=== PATIENT | female | born 1980 | race Caucasian/White ===

== ENCOUNTER → 2017-03-17 | Outpatient (CLI) | payer SELFPAY ==
--- NOTE | 2017-03-17 16:34 | MR ---
MRI CERVICAL SPINE: CLINICAL HISTORY: Intractable migraine headaches with aura per order. Severe headaches with neck stif fness for 2 years per patient. TECHNIQUE: Multiplanar, multisequence imaging of the cervical spine is performed without IV contrast. COMPARISON: Cervical spine x-ray July 29, 2015. FINDINGS: Sagittal images of the cervical spine show the craniocervical junction to appear within nor mal limits. The cervical and upper thoracic spinal cord is normal in course, caliber, and signal. V ertebral alignment is anatomic. The vertebral body and intravertebral disk heights are normal. No l arge posterior disc herniations are seen on sagittal images. The bone marrow signal intensity is with in normal limits. No significant spurring is present. Axial images show the C2-C3 through C4-C5 level to appear within normal limits. Axial images at C5-C6 level show small central disc protrusion on axial image 21 confirmed on sagitta l image 7 minimally effacing anterior thecal sac, bilateral neural foramina are patent. Axial images at C6-C7 and C7-T1 levels are within normal limits. IMPRESSION: Small central disc herniation C5-C6 level otherwise unremarkable study.
== END | disposition home or self-care (01) ==
LOC: RADMRIMAIN 15:27
PROVIDERS: ATTEND Psychiatry & Neurology Neurology
DX: M50.222 Other cervical disc displacement at C5-C6 level (principal); G43.109 Migraine with aura, not intractable, without status migrainosus
CPT/HCPCS: 72141

== ENCOUNTER → 2017-09-12 | Outpatient (CLI) | payer BC, OTHER ==
--- NOTE | 2017-09-12 16:50 | US ---
EXAMINATION TYPE: US OB <= 14 wk fetus DATE OF EXAM: 09/12/2017 COMPARISON: NONE CLINICAL HISTORY: CONFIRM DATES Z36. Confirm dates due to enlarged UT on physical exam EXAM PERFORMED: TA EXAM MEASUREMENTS: GESTATIONAL AGE / DATING Physician Established: (14 weeks/5 days) EDC: 03/10/2018 Dates by LMP: (14 weeks/5 days) EDC: 03/10/2018 Dates by First Scan: LAB ANIMAL TECHNICIAN Dates by Current Scan for: (14 weeks/5 days) EDC: 03/08/2018 MATERNAL ANATOMY Uterus: 18.1 x 11.9 x 8.0cm, possible bicornuate uterus versus didelphys versus septate uterus seen, gestation within right horn Right Ovary: not seen due to enlarged UT and bowel gas Left Ovary: not seen due to enlarged UT and bowel gas Post CDS / Adnexa: wnl Presence of free fluid: no Presence of corpus luteal cyst: no Presence of subchorionic bleed: no GESTATION / SURVEY CRL: 8.7 (14 weeks/5 days) MSD: wnl Yolk Sac (normal less than 6mm): not seen Heart Rate: 148 bpm Rhythm: Normal IUP: Viable IUP Date of LMP: 06/03/2017 Beta HcG (if available): not available IMPRESSION: 1. 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 Differential diagnosis is for bicornuate uterus, uterine didelphys, or septate uterus. Correlation with any prior HSG or pelvi c ultrasound would be of benefit. If there is clinical need unenhanced MR could be performed. T here is a current sonographic gestational age of 14 weeks and 5 days concordant with menstrual age an d estimated date of delivery of 03/08/2018. 2. Nonvisualization of the ovaries.
[2017-09-12 16:56] LABS: CH 31.5; CHCM 33.7; HCT 34.6 % (34.0-46.0); HDW 2.35; HGB 11.5 gm/dL (11.4-16.0); MCH 31.4 pg (25.0-35.0); MCHC 33.3 g/dL (31.0-37.0); MCV 94.2 fL (80.0-100.0); Mean Platelet Volume 9.2; RBC 3.67 m/uL (3.80-5.40); RDW 14.9 % (11.5-15.5); WBC 13.6 k/uL (3.8-10.6)
[2017-09-12 17:09] LABS: Glucose 82 mg/dL (74-99); Non-African American GFR(MDRD) >60 (>60 ml/min/1.73 sqM)
[2017-09-13 02:00] LABS: Treponemal Ab Non-Reactive (Non-Reactive)
== END | disposition home or self-care (01) ==
LOC: RADUSWWP 16:01
PROVIDERS: ATTEND Obstetrics & Gynecology
DX: Z36.89 Encounter for other specified antenatal screening (principal); O26.812 Pregnancy related exhaustion and fatigue, second trimester; Z3A.14 14 weeks gestation of pregnancy
CPT/HCPCS: 76801; 82565; 82947; 85027; 86762; 86780; 86850; 86900; 86901; 87340; 87390

== ENCOUNTER 2018-01-27 22:35 | Outpatient (CLI) | payer BC, OTHER ==
[2018-01-27 23:35] VITALS: PULSE 98; RESP 17; TEMP 96.8
[2018-01-28 00:09] VITALS: BP 121/78
--- NOTE | 2018-01-29 11:23 | P.MSEPDOC ---
Presenting Problems - Arrival Data Date of Arrival on Unit: 01/27/18 Time of Arrival on Unit: 22:37 Mode of Transport: Wheelchair - Complaint OB-Reason for Admission/Chief Complaint: Rule Out PROM, Pain Comment: Patient presents to triage for evaluation of possible ROM after " losing mucus plug" about 1400 this afternoon. Patient also complains of mild back pain that started about two days ago. Medical History - Information : 2 Para: 1 Term: 1 : 0 Abortions: Spontaneous or Elective: 0 Number of Living Children: 1 - Gestational Age Gestational Age by FRANK (wks/days): 34 Weeks and 1 Days - History Complications: Smoker, Other Comment: Advanced maternal age. Bicornuate uterus. Review of Systems - Review of Systems Constitutional: No problems Breast: No problems ENT: No problems Cardiovascular: No problems Respiratory: No problems Gastrointestinal: No problems Genitourinary: No problems Musculoskeletal: No problems Neurological: No problems Skin: No problems Vital Signs - Temperature Temperature: 96.8 F Temperature Source: Temporal Artery Scan - Pulse Pulse Oximetery Pulse Rate: 98 Pulse Assessment Method: Pulse Oximetry - Respirations Respiratory Rate: 17 Oxygen Delivery Method: Room Air O2 Sat by Pulse Oximetry: 100 - Blood Pressure Right Arm Blood Pressure: 121/78 Blood Pressure Mean: 92 Blood Pressure Source: Automatic Cuff Medical Screen Scoring (Pre) - Cervical Exam Dilation: 0 cm = 0 Effacement: Exam Deferred Membranes: Intact - Uterine Contractions Frequency: N/A Duration: N/A Intensity: N/A - Maternal Vital Signs Maternal Temperature: N/A Maternal Blood Pressure: Systolic >139 = 2 Signs of Preeclampsia: N/A Maternal Respirations: N/A - Pain Assessment Pain Location and Character: Back Pain Scale Used: Numeric (1 - 10) Pain Intensity: 2 Pain Management Goal: 0 Pain Description: Sore Pain Radiation Location: n/a Pain Frequency: Intermittent Pain Duration: 48 Pain Duration Units: Hours Pain Behavior: Vocalization Effects of Pain: none Pain Aggravating Factors: None Pharmacological Interventions: PRN Medication Non-Pharmacological Interventions: Distraction - Maternal Trauma Maternal Trauma: N/A - Assessment Baseline FHR: 145 Heart Rate - NICHD Category: Category I (Normal) = 0 NST: Reactive Position: N/A Station: N/A - Total Score Total Score (Pre): 2 - Level of Risk Level of Risk: Low (0-5) Physician Notification (Pre) - Physician Notified Physician Notified Date: 01/27/18 Physician Notified Time: 23:15 Physician/Practitioner Notifed:: Christina Spoke With: Christina New Order Received: Yes (Discharge home) Medical Screen Scoring (Post) - Cervical Exam Dilation: Exam Deferred Effacement: Exam Deferred Membranes: Intact - Uterine Contractions Frequency: N/A Duration: N/A Intensity: N/A - Maternal Vital Signs Maternal Temperature: N/A Signs of Preeclampsia: N/A Maternal Respirations: N/A - Total Score Total Score (Post): 0 Disposition - Disposition OB Disposition: Discharge to home Discharge Date: 01/27/18 Discharge Time: 23:30 I agree with the RN Medical Screening Exam: Yes Risk & Benefit of care provided described in d/c instruction: Yes Diagnosis: FALSE LABOR BEFORE 37 COMPLETED WEEKS OF GEST, THIRD TRI
== END 2018-01-27 23:30 | disposition home or self-care (01) ==
LOC: FBPOP 22:35
PROVIDERS: ATTEND Obstetrics & Gynecology
DX: O47.03 False labor before 37 completed weeks of gestation, third trimester (principal); O99.333 Smoking (tobacco) complicating pregnancy, third trimester; Z3A.34 34 weeks gestation of pregnancy
CPT/HCPCS: 84112; 99213

== ENCOUNTER 2018-02-09 06:45 | Outpatient (CLI) | payer BC, OTHER ==
[2018-02-09 08:17] VITALS: BP 130/73; PULSE 85; RESP 18; TEMP 97.3
--- NOTE | 2018-02-14 12:31 | P.MSEPDOC ---
Presenting Problems - Arrival Data Date of Arrival on Unit: 02/09/18 Time of Arrival on Unit: 06:35 Mode of Transport: Ambulatory - Complaint OB-Reason for Admission/Chief Complaint: Possible Onset of Labor Comment: contractions 5 min apart for one hour Medical History - Information : 2 Para: 1 Term: 1 : 0 Abortions: Spontaneous or Elective: 0 Number of Living Children: 1 - Gestational Age Gestational Age by FRANK (wks/days): 35 Weeks and 6 Days Review of Systems - Review of Systems Constitutional: No problems Breast: No problems ENT: No problems Cardiovascular: No problems Respiratory: No problems Gastrointestinal: No problems Genitourinary: No problems Musculoskeletal: No problems Neurological: No problems Skin: No problems Vital Signs - Temperature Temperature: 97.3 F Temperature Source: Temporal Artery Scan - Pulse Right Sitting Brachial Pulse Rate: 85 Pulse Assessment Method: Automatic Cuff - Respirations Respiratory Rate: 18 Oxygen Delivery Method: Room Air O2 Sat by Pulse Oximetry: 100 - Blood Pressure Right Arm Sitting Blood Pressure: 130/73 Blood Pressure Mean: 92 Blood Pressure Source: Automatic Cuff Medical Screen Scoring (Pre) - Cervical Exam Dilation: 0 cm = 0 - Uterine Contractions Frequency: > 5 minutes apart = 1 Duration: > 40 seconds = 2 Intensity: N/A - Maternal Vital Signs Maternal Temperature: N/A Maternal Blood Pressure: N/A Signs of Preeclampsia: N/A Maternal Respirations: N/A - Pain Assessment Pain Intensity: 5 Pain Management Goal: 0 - Maternal Trauma Maternal Trauma: N/A - Assessment Baseline FHR: 125 Heart Rate - NICHD Category: Category I (Normal) = 0 NST: Reactive Position: N/A Station: N/A - Total Score Total Score (Pre): 3 - Level of Risk Level of Risk: Low (0-5) Physician Notification (Pre) - Physician Notified Physician Notified Date: 02/09/18 Physician Notified Time: 07:30 Physician/Practitioner Notifed:: Dr Nolen Spoke With: Dr Nolen New Order Received: Yes - Notification Comment Comment: dc home if reactive NST and no change in cervical exam Disposition - Disposition OB Disposition: Discharge to home Discharge Date: 02/09/18 Discharge Time: 08:17 I agree with the RN Medical Screening Exam: Yes Risk & Benefit of care provided described in d/c instruction: Yes Diagnosis: FALSE LABOR BEFORE 37 COMPLETED WEEKS OF GEST, THIRD TRI
== END 2018-02-09 08:19 | disposition home or self-care (01) ==
LOC: FBPOP 06:45
PROVIDERS: ATTEND Obstetrics & Gynecology
DX: O47.03 False labor before 37 completed weeks of gestation, third trimester (principal); Z3A.35 35 weeks gestation of pregnancy
CPT/HCPCS: 59025; 99213

== ENCOUNTER 2018-02-27 12:05 | Outpatient (CLI) | payer BC, OTHER ==
[2018-02-27 13:28] VITALS: BP 139/77; PULSE 89; RESP 18
--- NOTE | 2018-02-27 13:30 | US ---
EXAMINATION TYPE: US OB >= 14 wk fetus DATE OF EXAM: 02/27/2018 COMPARISON: None CLINICAL HISTORY: NON reactive NST TECHNIQUE: Transabdominal (TA) GESTATIONAL AGE / DATING Physician Established: (38 weeks/5 days) EDC: 03/08/2018 Dates by LMP: (38 weeks/5 days) EDC: 03/08/2018 Dates by First Scan: (38 weeks/5 days) EDC: 03/08/2018 Dates by Current Scan: (36 weeks/6 days) EDC: 03/21/2018 SURVEY IUP: Single PLACENTA: Fundal PREVIA: No Previa KATELIN: 8.4 cm Lower limits of normal CERVICAL LENGTH (transabdominal: norm > 3.0cm): 3.8 cm BIOMETRY PRESENTATION: Vertex LIE: Longitudinal BPD: 9.19 cm 37 weeks / 2 days HC: 33.6 cm 38 weeks / 3 days AC: 32.82 cm 36 weeks / 5 days FL: 7.12 cm 36 weeks / 3 days ESTIMATED WEIGHT IN GRAMS: 3070 grams ESTIMATED WEIGHT IN LBS/OZ: 6 lbs. 12 oz. WEIGHT PERCENTAGE BASED ON ESTABLISHED DATES: 23.6% HC/AC: 1.02 Normal FL/AC: 21.71 Normal HEART RATE: 126 bpm RHYTHM: Normal Live IUP with an FRANK of 03/21/2018 by this exam. KATELIN is lower limits of normal. IMPRESSION: Single live intrauterine with an estimated sonographic age of 36 weeks and 6 da ys and date of delivery of 03/21/2018. Amniotic fluid index is lower limits of normal measuring 8.4 cm . heart rate is also lower limits of normal at 126 bpm, however this does not meet criteria for bradycardia.
== END 2018-02-27 13:20 | disposition home or self-care (01) ==
LOC: FBPOP 12:05
PROVIDERS: ATTEND Obstetrics & Gynecology
DX: O76 Abnormality in fetal heart rate and rhythm complicating labor and delivery (principal); Z3A.36 36 weeks gestation of pregnancy
CPT/HCPCS: 59025; 76805

== ENCOUNTER 2018-03-06 10:23 | Inpatient (IN) | payer BC, OTHER ==
[2018-03-06] MEDS ORDERED: OXYTOCIN 10 UNIT/ML 1 ML VIAL IM PRN (11:25)
[2018-03-06] MEDS ORDERED: CARBOPROST TROMETHAMINE 250 MCG/ML 1 ML AMP IM PRN (11:25)
[2018-03-06] MEDS ORDERED: METHYLERGONOVINE 0.2 MG/ML 1 ML AMP IM PRN (11:25)
[2018-03-06] MEDS ORDERED: TERBUTALINE 1 MG/ML VIAL SQ PRN (11:25)
[2018-03-06] MEDS ORDERED: LIDOCAINE 1% (PF) 10 MG/ML (30 ML SDV) SQ PRN (11:25)
[2018-03-06] MEDS ORDERED: LACTATED RINGERS 1,000 ML IV SCH (11:30)
[2018-03-06 11:42] VITALS: BMI 75.2
[2018-03-06] MEDS ORDERED: OXYTOCIN 20 UNITS/1000 ML NS 1,000 ML IV SCH (12:00)
[2018-03-06] MEDS ORDERED: BENZOCAINE/MENTHOL SPRAY 1 GM/SPRAY AEROSOL TOPICAL PRN (12:35)
[2018-03-06] MEDS ORDERED: diphenhydrAMINE 50 MG/ML 1 ML VIAL IVP PRN ×2 (12:35)
[2018-03-06] MEDS ORDERED: ZOLPIDEM 5 MG TAB PO PRN (12:35)
[2018-03-06] MEDS ORDERED: WITCH HAZEL 1 EACH MED..PAD TOPICAL PRN (12:35)
[2018-03-06] MEDS ORDERED: diphenhydrAMINE 25 MG CAP PO PRN (12:35)
[2018-03-06] MEDS ORDERED: diphenhydrAMINE 50 MG CAP PO PRN (12:35)
[2018-03-06] MEDS ORDERED: ACETAMINOPHEN TAB 325 MG TAB PO PRN (12:35)
[2018-03-06] MEDS ORDERED: SIMETHICONE 80 MG CHEWABLE PO PRN (12:35)
[2018-03-06] MEDS ORDERED: HYDROCORTISONE 2.5% RECTAL CREAM 30 GM TUBE RECTAL PRN (12:35)
[2018-03-06] MEDS ORDERED: LANOLIN CREAM 5 GM TUBE TOPICAL PRN (12:35)
[2018-03-06] MEDS ORDERED: DIPH,PERTUS(ACELL)TETVAC-LF 0.5 ML VIAL IM ONE (12:36)
[2018-03-06 12:48] LABS: Basophils % (A) 0 %; Eosinophils # (A) 0.2 k/uL (0-0.7); Eosinophils % (A) 1 %; HCT 43.6 % (34.0-46.0); HGB 14.4 gm/dL (11.4-16.0); Lymphocytes # (A) 2.8 k/uL (1.0-4.8); Lymphocytes % (A) 17 %; MCH 30.1 pg (25.0-35.0); MCV 91.2 fL (80.0-100.0); Mean Platelet Volume 13.5; Monocytes # (A) 0.7 k/uL (0-1.0); Monocytes % (A) 4 %; Neutrophils # (A) 12.4 k/uL (1.3-7.7); Neutrophils % (A) 76 %; Platelet Count 205 k/uL (150-450); RBC 4.78 m/uL (3.80-5.40); RDW 14.6 % (11.5-15.5); WBC 16.4 k/uL (3.8-10.6)
--- NOTE | 2018-03-06 12:54 | P.HPOB ---
History of Present Illness H&P Date: 03/06/18 Chief Complaint: Contractions. This patient is a pleasant 37-year-old 2 para 1 female estimated date of confinement 03/10/2018 estimated gestational age 39-3/7 weeks who presents by EMS this morning with complaints of active labor. Patient's care has been complicated by advanced for maternal age. 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 Patient also reported a prolonged second stage with her first delivery requiring vacuum delivery. That baby was 5 lbs. 7 oz. She and I did have a long discussion about this and we discussed options for delivery including elective section and she has requested trial of labor. Patient is now 9 cm dilated in active labor. Review of Systems Gastrointestinal: Reports heartburn Genitourinary: Reports Menstruation: Reports amenorrhea Past Medical History Additional Past Medical History / Comment(s): Asthma, migranes History of Any Multi-Drug Resistant Organisms: None Reported Additional Past Surgical History / Comment(s): Patient had wisdom tooth extraction. Past Anesthesia/Blood Transfusion Reactions: No Reported Reaction Past Psychological History: No Psychological Hx Reported Smoking Status: Current every day smoker Past Alcohol Use History: None Reported Past Drug Use History: None Reported - Past Family History Father Family Medical History: No Reported History Medications and Allergies Home Medications Medication Instructions Recorded Confirmed Type Pnv,Calcium 72/Iron/Folic Acid 1 tab PO DAILY 01/27/18 03/06/18 History [ Plus Tablet] Allergies Allergy/AdvReac Type Severity Reaction Status Date / Time iodine Allergy Anaphylaxis Verified 03/06/18 10:51 Penicillins Allergy Anaphylaxis Verified 03/06/18 10:51 shellfish derived [Shellfish] Allergy Anaphylaxis Verified 03/06/18 10:51 latex AdvReac Rash/Hives Verified 03/06/18 10:51 Exam - Vital Signs Vital signs: Vital Signs Temp Pulse Resp BP Pulse Ox 03/06/18 11:42 82 18 144/70 100 03/06/18 11:27 104 H 18 134/72 03/06/18 11:12 83 18 129/66 03/06/18 10:30 95.8 F L 82 18 132/87 98 Intake and Output 03/05/18 03/06/18 03/06/18 22:59 06:59 14:59 Other: Weight 205 kg - OBG Physical Exam Abdomen: bowel sounds normal, no diffuse tenderness, no bruit present, no guarding noted, no hepatomegaly, no splenomegaly, no mass Vulva: both: normal Vagina: normal moisture, no discharge Cervix: no lesion (Cervix is anterior lip on my presentation.), no discharge Uterus: enlarged (Fundal height in the office was 38 cm.) Results blood work shows she is AB+, rubella immune, RPR nonreactive, hepatitis B negative, HIV is nonreactive, Glucola was normal, group B strep was negative, level III ultrasound was normal other than a bicornuate uterus. Assessment and Plan Assessment: This is a pleasant 37-year-old 2 para 1 female 39-3/7 weeks gestation and in active labor. Plan is anticipate vaginal delivery. (1) Normal labor Current Visit: Yes Status: Acute Code(s): O80 - ENCOUNTER FOR FULL-TERM UNCOMPLICATED DELIVERY; Z37.9 - OUTCOME OF DELIVERY, UNSPECIFIED SNOMED Code(s ): 70849965 (2) Elderly multigravida Current Visit: Yes Status: Acute Code(s): O09.529 - SUPERVISION OF ELDERLY MULTIGRAVIDA, UNSPECIFIED TRIMESTER SNOMED Code(s): 261397369
[2018-03-06] MEDS: IBUPROFEN 600 MG TAB PO PRN ×2 (12:58→19:09)
--- NOTE | 2018-03-06 12:58 | P.PROBDLV ---
Vaginal Delivery Note - . Vaginal Delivery Note: Normal spontaneous vaginal delivery viable male Apgars are 9 and 9 delivery time is 1058 hrs. Please see dictated H&P for intimate details of this patient's admission. Brief summary this is a pleasant 37-year-old 2 para 1 female admitted to labor and delivery via EMS in active labor. Patient's that she had onset of contractions earlier this morning and actually had rupture of membranes on the way to the hospital. Patient is 9 cm dilated on presentation and is quite out of control in fact she's pulled her IV out. This time I tried to call the patient down and we do get an IV placed. At this time she is pushing uncontrollably and is complete. Patient then pushes briefly and pushes the head over the intact perineum. Mouth and nares are bulb suctioned. At this time it is evident that she has a compound presentation with a posterior hand presenting. And despite pushing she does not deliver the anterior shoulder. At this time she's placed in Williams position. And with maternal effort she does deliver the posterior hand and shoulder and then the anterior shoulder releases at this time. No other maneuvers are required for delivery. This would be considered a mild shoulder dystocia complicated by posterior compound presentation. After delivery of the the umbilical cord is doubly clamped and cut. This is a vigorous viable male Apgars are 9 and 9 delivery time was 1058 hrs. has spontaneous respirations and good cry and grossly appears normal with the exception of facial bruising. The placenta is then spontaneously delivered intact. Estimated blood loss is 100 mL. Inspection of perineum shows a small first-degree vaginal laceration she is infiltrated with 1% lidocaine and repaired with a 3-0 Vicryl [id number] stitch. All counts are correct 3. There are no complications. There appears to be no sequela.
[2018-03-06] MEDS: SENNOSIDES-DOCUSATE SODIUM 1 EACH TAB PO SCH (19:47)
[2018-03-07] MEDS: IBUPROFEN 600 MG TAB PO PRN ×3 (04:13→16:10)
--- NOTE | 2018-03-07 05:49 | P.PNOBGVD ---
Subjective - Subjective Patient reports: Reports appetite normal, Reports voiding normally, Reports pain well controlled, Reports ambulating normally : doing well Objective - Latest Vital Signs Latest vital signs: Vital Signs Temp Pulse Resp BP Pulse Ox 03/07/18 00:00 97.6 F 70 16 139/83 03/06/18 20:00 97.6 F 67 16 137/88 03/06/18 15:45 98.1 F 82 18 129/74 96 03/06/18 13:15 97.4 F L 83 18 124/74 03/06/18 12:55 63 18 144/76 03/06/18 12:12 69 18 138/68 03/06/18 11:57 69 18 03/06/18 11:42 82 18 144/70 100 03/06/18 11:27 104 H 18 134/72 03/06/18 11:12 83 18 129/66 03/06/18 10:30 95.8 F L 82 18 132/87 98 Intake and Output 03/06/18 03/06/18 03/07/18 14:59 22:59 06:59 Other: # Voids 1 1 1 Weight 205 kg - Exam Lungs: bilateral: normal Chest: Normal S1, Normal S2 Extremities: Present: normal Abdomen: Present: normal appearance, soft Uterus: Present: normal, firm - Labs Labs: Abnormal Lab Results - Last 24 Hours (Table) 03/06/18 Range/Units 10:49 WBC 16.4 H (3.8-10.6) k/uL Neutrophils # 12.4 H (1.3-7.7) k/uL Assessment and Plan Assessment: day #1. Patient is resting without complaints and wishes to go home. Vital signs are stable she's afebrile. Uterus is firm nontender she is having normal lochia. My impression is this is a normal course. Plan is to continue routine care discharge home later today. (1) Normal labor Current Visit: Yes Status: Acute Code(s): O80 - ENCOUNTER FOR FULL-TERM UNCOMPLICATED DELIVERY; Z37.9 - OUTCOME OF DELIVERY, UNSPECIFIED SNOMED Code(s ): 70701251 (2) Elderly multigravida Current Visit: Yes Status: Acute Code(s): O09.529 - SUPERVISION OF ELDERLY MULTIGRAVIDA, UNSPECIFIED TRIMESTER SNOMED Code(s): 790794334
--- NOTE | 2018-03-07 05:50 | P.DS ---
Providers Date of admission: 03/06/18 10:30 Expected date of discharge: 03/07/18 Attending physician: Fredis Nolen Primary care physician: Fredis Nolen - Discharge Diagnosis(es) (1) Normal labor Current Visit: Yes Status: Acute (2) Elderly multigravida Current Visit: Yes Status: Acute Hospital Course: Please see dictated H&P for intimate details of this patient's admission. Procedures: Normal vaginal delivery Patient Condition at Discharge: Good Plan - Discharge Summary New Discharge Prescriptions: New Ibuprofen [Motrin] 600 mg PO Q6HR PRN #40 tab PRN Reason: Pain No Action Pnv,Calcium 72/Iron/Folic Acid [ Plus Tablet] 1 tab PO DAILY Discharge Medication List Pnv,Calcium 72/Iron/Folic Acid [ Plus Tablet] 1 tab PO DAILY 01/27/18 [ History] Ibuprofen [Motrin] 600 mg PO Q6HR PRN #40 tab 03/07/18 [Rx] Follow up Appointment(s)/Referral(s): Fredis Nolen MD [Primary Care Provider] - 6 Weeks Patient Instructions/Handouts: Vaginal Delivery (DC) Activity/Diet/Wound Care/Special Instructions: No intercourse or anything per vagina for 6 weeks. Please call if any fever, chills, excessive vaginal bleeding, and/or abdominal pain. Discharge Disposition: HOME SELF-CARE
[2018-03-07] MEDS: SENNOSIDES-DOCUSATE SODIUM 1 EACH TAB PO SCH (09:01)
[2018-03-07 10:01] VITALS: RESP 15
[2018-03-07 16:26] VITALS: BP 109/63; PULSE 84; TEMP 97.4
== END 2018-03-07 17:31 | disposition home or self-care (01) | DRG 775 ==
LOC: FBPOP 10:23 → 4FBP 10:30
PROVIDERS: ADMIT Obstetrics & Gynecology; ATTEND Obstetrics & Gynecology
PROC: 10E0XZZ Delivery of Products of Conception, External Approach (ICD-10-PCS; principal; 2018-03-06)
PROC: 0HQ9XZZ Repair Perineum Skin, External Approach (ICD-10-PCS; 2018-03-06)
DX: O99.334 Smoking (tobacco) complicating childbirth (principal); F17.200 Nicotine dependence, unspecified, uncomplicated; O70.0 First degree perineal laceration during delivery; O64.5XX0 Obstructed labor due to compound presentation, not applicable or unspecified; Z37.0 Single live birth; Q51.3 Bicornate uterus; Z3A.39 39 weeks gestation of pregnancy; Z91.041 Radiographic dye allergy status; Z91.040 Latex allergy status; Z88.0 Allergy status to penicillin; Z91.013 Allergy to seafood; Z86.69 Personal history of other diseases of the nervous system and sense organs; Z87.09 Personal history of other diseases of the respiratory system
CPT/HCPCS: 85025; 88307; 90715; 99213

== ENCOUNTER 2018-07-27 05:34 | Day surgery (SDC) | payer BC, OTHER ==
[2018-07-18 10:40] VITALS: BMI 27.3
--- NOTE | 2018-07-26 07:24 | P.HPOB ---
History of Present Illness H&P Date: 07/26/18 Chief Complaint: VAIN II This patient is a pleasant 38-year-old 2 para 2 female who is presenting for colposcopy and excision of vaginal VAIN II lesion. Patient's history is such that she had a low-grade Pap smear and colposcopy on June 21 showed a left vaginal lesion that revealed condyloma with VAIN II. Since this is high-grade I recommended excision and cauterization of the lesion. Review of Systems Constitutional: Denies chills, Denies fever Past Medical History Past Medical History: Asthma Additional Past Medical History / Comment(s): Asthma, migranes History of Any Multi-Drug Resistant Organisms: None Reported Past Surgical History: No Surgical Hx Reported Additional Past Surgical History / Comment(s): Patient had wisdom tooth extraction. Past Anesthesia/Blood Transfusion Reactions: No Reported Reaction, Family History of Problems w/ Anesthesia Additional Past Anesthesia/Blood Transfusion Reaction / Comment(s): pt has never had anesthesia. mom has ponv Smoking Status: Current every day smoker - Past Family History Father Family Medical History: Blood Disorder Additional Family Medical History / Comment(s): Factor V Sister(s) Family Medical History: Blood Disorder, CVA/TIA Additional Family Medical History / Comment(s): Factor V Medications and Allergies Home Medications Medication Instructions Recorded Confirmed Type Pseudoephedrine [Sudafed] 30 mg PO Q4-6H PRN 07/18/18 07/18/18 History Allergies Allergy/AdvReac Type Severity Reaction Status Date / Time iodine Allergy Anaphylaxis Verified 07/18/18 10:32 Penicillins Allergy Anaphylaxis Verified 07/18/18 10:32 shellfish derived [Shellfish] Allergy Anaphylaxis Verified 07/18/18 10:32 latex AdvReac Rash/Hives Verified 07/18/18 10:32 Exam - OBG Physical Exam Abdomen: bowel sounds normal, no diffuse tenderness, no bruit present, no guarding noted, no hepatomegaly, no splenomegaly, no mass Vulva: both: normal Vagina: Patient had a 1 cm papular area of the left vaginal fornices and biopsy confirmed condyloma with VAIN II. 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 Plan is colposcopy with excision of the lesion and cauterization of any other lesions. Patient and I discussed the surgery and risks including risks of infection, bleeding, possible dyspareunia, possible recurrence and need for further treatment. All the patient's questions are answered and a written consent is obtained. 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
[~2018-07-27 05:34] MED LIST: DEXAMETHASONE SOD PHOSPHATE 10 MG/ML 1 ML VIAL IV ONE; LACTATED RINGERS 1,000 ML IV SCH; LIDOCAINE 1% 20 ML VIAL (10MG/ML) FOR IV START INTRADERMA PRN; MIDAZOLAM 2 MG/2 ML VIAL IV PRN; ONDANSETRON 4 MG/2 ML VIAL IVP ONE; Pre Op ABX Message 1 EACH MISC MISCELLANE ONE; fentaNYL (PF) 50 MCG/ML 2 ML AMP IV PRN
[2018-07-27] MEDS ORDERED: ONDANSETRON 4 MG/2 ML VIAL IVP ONE ×2 (05:36)
[2018-07-27] MEDS ORDERED: HYDROmorphone 0.5 MG/0.5 ML SYRINGE IVP PRN (05:36)
[2018-07-27] MEDS ORDERED: LIDOCAINE 1% 20 ML VIAL (10MG/ML) FOR IV START INTRADERMA PRN (05:36)
[2018-07-27] MEDS ORDERED: fentaNYL (PF) 50 MCG/ML 2 ML AMP IV PRN (05:36)
[2018-07-27] MEDS ORDERED: LACTATED RINGERS 1,000 ML IV SCH ×2 (05:36)
[2018-07-27] MEDS ORDERED: MIDAZOLAM 2 MG/2 ML VIAL IV PRN ×2 (05:36)
[2018-07-27] MEDS ORDERED: DEXAMETHASONE SOD PHOSPHATE 10 MG/ML 1 ML VIAL IV ONE ×2 (05:36)
[2018-07-27] MEDS ORDERED: SCOPOLAMINE 1.5MG/72HR PATCH TRANSDERM ONE (06:24)
[2018-07-27] MEDS ORDERED: diphenhydrAMINE 50 MG/ML 1 ML VIAL ONE (06:45)
[2018-07-27] MEDS ORDERED: diphenhydrAMINE 50 MG/ML 1 ML VIAL IVP ONE (06:53)
[2018-07-27] MEDS ORDERED: fentaNYL (PF) 50 MCG/ML 2 ML AMP ONE (06:56)
[2018-07-27] MEDS ORDERED: KETOROLAC 30 MG/ML 1 ML VIAL ONE (06:56)
[2018-07-27] MEDS ORDERED: LIDOCAINE 1% INJ 10MG/ML (20 ML MDV) ONE (06:56)
[2018-07-27] MEDS ORDERED: PROPOFOL 10 MG/ML 50 ML VIAL IV ONE (06:56)
[2018-07-27] MEDS ORDERED: MIDAZOLAM 2 MG/2 ML VIAL ONE (06:56)
[2018-07-27] MEDS ORDERED: ACETIC ACID 15 DROPS/ML DROPS MISCELLANE ONE (07:18)
--- NOTE | 2018-07-27 07:33 | P.OP ---
Date of Procedure: 07/27/18 Preoperative Diagnosis: VAIN II Postoperative Diagnosis: Same Procedure(s) Performed: #1: Colposcopy. #2: Biopsy with cauterization of left vaginal lesion Anesthesia: MAC Surgeon: Fredis Nolen Estimated Blood Loss (ml): 5 Urine output (ml): 25 Pathology: other (Portion left vaginal lesion) Condition: stable Disposition: PACU Indications for Procedure: Please see dictated H&P for intimate details of this patient's admission. Brief summary is a pleasant 38-year-old female who is noted have abnormal Pap smear and her appointment. Colposcopy showed a VAIN II of the left vaginal fornice and condyloma. Patient at this time presents for excision and cauterization of this area. Patient have discussed this surgery and risks including risks of infection, bleeding, possible recurrence and need for further surgeries, possible dyspareunia. All the patient's questions are answered written consent is obtained. Operative Findings: This patient had a 1 cm area of the left vaginal fornices is consistent with above noted pathology. Description of Procedure: This patient is taken to the operating room where she is laid in the supine position. She subsequent goes general mask anesthesia without incident. Adequate level of anesthesia placed in dorsal lithotomy position. She has a vaginal prep with a non-iodine solution. Examination under anesthesia shows a mid position uterus. She has a appropriate- drape. A laser speculum is placed into the vagina. Colposcopy is performed at this time with dilute acetic acid. The area of abnormality is demarcated. The papular areas quite friable however using an Allis clamp and Russians I removed multiple portions of this sent off to pathology. With this done using Bovie cautery at 40 W setting, cauterization is done of the bed in any abnormal areas with approximately 5 mm margin. All areas that were nonstaining cauterized. Excellent hemostasis is noted. This point the procedure is ended. A speculum was removed. All counts correct 3. No complications. Patient is awakened from anesthesia and taken recovery room satisfactory condition.
[2018-07-27 07:34] VITALS: TEMP 98.7
[2018-07-27 07:53] VITALS: RESP 16
[2018-07-27 08:45] VITALS: BP 116/75; PULSE 66
== END 2018-07-27 09:12 | disposition home or self-care (01) ==
LOC: OR 05:34
PROVIDERS: ATTEND Obstetrics & Gynecology
DX: A63.0 Anogenital (venereal) warts (principal); N89.1 Moderate vaginal dysplasia; J45.909 Unspecified asthma, uncomplicated; G43.909 Migraine, unspecified, not intractable, without status migrainosus; F17.210 Nicotine dependence, cigarettes, uncomplicated; Z91.040 Latex allergy status; Z88.0 Allergy status to penicillin; Z91.09 Other allergy status, other than to drugs and biological substances; Z91.013 Allergy to seafood
CPT/HCPCS: 81025; 88305; 57421; J2250; J1200; J1100; J2405; J2001; J3010; J1885; J2704

== ENCOUNTER → 2021-04-24 | Outpatient (CLI) | payer BC, OTHER ==
[2021-04-24 11:42] VITALS: BP 107/73; PULSE 87; RESP 18; TEMP 98.2
--- NOTE | 2021-04-24 11:47 | P.GSHP ---
History of Present Illness H&P Date: 04/24/21 Chief Complaint: abnormal right breast ultrasound Cheryl is a 41 year old white female seen in consultation for Dr. Nolen regarding an abnormal right breast mammogram. She did not feel anything of concern in her breast. She had her first ever mammogram on 5520. This revealed an oval density in the upper posterior right breast. No lesions of concern were noted in the left breast. It was recommended she undergo an ultrasound. An ultrasound was performed on . This revealed at the 10 o'clock position 0.7 x 0.4 x 0.6 cm solid lesion for which ultrasound-guided core biopsy was recommended. The patient state 4 years ago at 4 months she had an abnormal PAP with high risk cells. After her child was born 6 weeks later she had a lesion in the vaginal wall removed in June 2018. This was VAIN II, (vaginal intraepithelial neoplasia) and she has examinations Q 6 months. After her child was born she breast feds 4 months prior to her surgery. She states her breast have been nodular since then with some intermittent nipple discharge, the discharge has become clear in nature. She gets the discharge several times a month and it resolves on its own. She has never noted any blood in it. She has no history of any recent trauma or infection in her breast. She has not had any surgery in her breast. She has irregular menstrual periods. Her last menstrual period was 1 week ago. Nipple discharge is not related to her menstrual periods. Caffiene: 5 cups of coffee/day nicotine: 1 PPD/ 20 years chocolate: none hormones: none, used BCP for about 2 years; Depro shot 3 years Family history: maternal grandmother: Throat cancer Maternal grandfather: Lung cancer Paternal grandmother: Stomach cancer Paternal grandfather: Colon cancer paternal great uncles: chest wall tumors cousin paternal: breast cancer, one with uterine cancer paternal aunt: cervical cancer Hormonal history: Menarche: 14 , breast fed: yes, age at first : 28 periods are irregular BCP and Depo-provera shots Surgical history: 1. Vaginal resection of intraepithelial neoplasia 2. Dental surgeries Medical history: Occasional migraine headaches Fibromyalgia Occasional anxiety Nicotine dependence asthma Social History: smoke: 1 PPD/20 years alcohol: none drugs: Marijuana occasionally for migraine headaches - Constitutional Constitutional: Denies chills, Denies fever - EENT Eyes: denies blurred vision, denies pain Ears: deny: decreased hearing, tinnitus Ears, nose, mouth and throat: Reports headache, Denies sore throat - Breasts Breasts: bilateral: as per HPI - Cardiovascular Cardiovascular: Denies chest pain, Denies shortness of breath - Respiratory Comment: smoker - Gastrointestinal Gastrointestinal: Reports diarrhea, Denies abdominal pain, Denies nausea, Denies vomiting - Genitourinary (Female) Genitourinary: Denies dysuria, Denies hematuria - Menstruation Menstruation: Reports cycle variable - Musculoskeletal Comment: Fibromyalgia - Integumentary Integumentary: Denies pruritus, Denies rash - Neurological Neurological: Denies numbness, Denies weakness - Psychiatric Psychiatric: Reports anxiety - Endocrine Comment: 24 pounds weight lost for no apparent reason Endocrine: Reports weight change, Denies fatigue - Hematologic/Lymphatic Comment: none - Allergic/Immunologic Allergic/Immunologic: Reports seasonal allergies Past Medical History Past Medical History: Asthma, Cancer Additional Past Medical History / Comment(s): Asthma, migranes, possible vaginal ca (pt thought it was cancer but was unclear) History of Any Multi-Drug Resistant Organisms: None Reported Past Surgical History: No Surgical Hx Reported Additional Past Surgical History / Comment(s): Patient had wisdom tooth extraction. vaginal excisional for possible cancer Past Anesthesia/Blood Transfusion Reactions: No Reported Reaction, Family History of Problems w/ Anesthesia Additional Past Anesthesia/Blood Transfusion Reaction / Comment(s): pt has never had anesthesia. mom has ponv Past Psychological History: Anxiety Past Alcohol Use History: None Reported Additional Past Alcohol Use History / Comment(s): smoker for 15-20 years 1ppd Past Drug Use History: None Reported - Past Family History Father Family Medical History: Blood Disorder Additional Family Medical History / Comment(s): Factor V Sister(s) Family Medical History: Blood Disorder, CVA/TIA Additional Family Medical History / Comment(s): Factor V Medications and Allergies Home Medications Medication Instructions Recorded Confirmed Type Pseudoephedrine [Sudafed] 30 mg PO Q4-6H PRN 07/18/18 04/24/21 History Ibuprofen [Motrin] 600 mg PO Q6HR PRN #40 tab 07/27/18 04/24/21 Rx Cetirizine HCl [Zyrtec] 10 mg PO DIRECTED PRN 04/21/21 04/24/21 History Allergies Allergy/AdvReac Type Severity Reaction Status Date / Time iodine Allergy Anaphylaxis Verified 04/24/21 11:08 Penicillins Allergy Anaphylaxis Verified 04/24/21 11:08 shellfish derived [Shellfish] Allergy Anaphylaxis Verified 04/24/21 11:08 adhesive tape AdvReac Rash/Hives Verified 04/24/21 11:08 latex AdvReac Rash/Hives Verified 04/24/21 11:08 Surgical - Exam - General well developed, well nourished, no distress - Eyes normal ocular movement - ENT normal pinna, normal nares - Neck no masses, trachea midline - Respiratory normal expansion, normal respiratory effort, clear to auscultation - Cardiovascular Rhythm: regular Heart Sounds: normal: S1, S2 - Abdomen Abdomen: soft - Integumentary normal turgor - Neurologic no disoriented, no combative - Musculoskeletal normal gait - Psychiatric oriented to time, oriented to person, oriented to place, speech is normal, memory intact breast exam: BRA: XLarge inspection: Bilateral grade 2/3 ptosis Palpation: Right breast: Multi-positional exam fibrocystic changes particularly attention at the 10 o'clock position does not reveal any discrete lump or mass Right axilla: No adenopathy of concern Left breast: Multiple positional exam fibrocystic changes, no dominant masses or nodules of concern Left axilla: No adenopathy of concern Results Mammogram and ultrasound results reviewed Assessment and Plan Assessment: Impression: 1. Fibrocystic breast changes 2. Intermittent clear nipple discharge no discharge on today's examination 3. Radiographic abnormality right breast at the 10 o'clock position most likely fibroadenoma 4. Nicotine dependence 5. Large amount of caffeine intake 6. Family history of cancer 7. Intermittent asthma 8. Fibromyalgia 9. Occasional anxiety Plan: 1. Ultrasound-guided core biopsy lesion in the right breast 2. Patient encouraged to decrease caffeine and nicotine intake 3. Association of caffeine and nicotine with fibrocystic disease discussed with the patient and her 4. Patient being followed with regular examinations for VAIN CC: Lisseth Mcmahan Encounter 45 minutes, time spent in examination, reviewing tests, and counseling.
== END ==
LOC: WWCWWP 10:44
PROVIDERS: ATTEND Surgery
DX: N60.11 Diffuse cystic mastopathy of right breast (principal); F17.210 Nicotine dependence, cigarettes, uncomplicated; N64.52 Nipple discharge; M79.7 Fibromyalgia; F41.9 Anxiety disorder, unspecified; T43.615A Adverse effect of caffeine, initial encounter; G43.909 Migraine, unspecified, not intractable, without status migrainosus; J45.20 Mild intermittent asthma, uncomplicated; Z80.9 Family history of malignant neoplasm, unspecified; Z79.1 Long term (current) use of non-steroidal anti-inflammatories (NSAID); Z88.0 Allergy status to penicillin; Z91.013 Allergy to seafood; Z91.041 Radiographic dye allergy status; Z91.048 Other nonmedicinal substance allergy status; Z91.040 Latex allergy status

== ENCOUNTER → 2021-05-01 | Day surgery (SDC) | payer BC, OTHER ==
[2021-05-01 09:46] VITALS: RESP 16
[2021-05-01 11:15] VITALS: BP 115/78; PULSE 76; TEMP 98.2
--- NOTE | 2021-05-01 11:34 | USB ---
EXAMINATION TYPE: US biopsy breast VAD RT DATE OF EXAM: 05/01/2021 CLINICAL HISTORY: R92.8 Abnormal mammogram. TECHNIQUE: Ultrasound guided core biopsy of right breast. COMPARISON: 04/07/2021 outside ultrasound right breast FINDINGS: The procedure of ultrasound guided core biopsy was explained to the patient. Benefits, alternatives, and risks were discussed. An informed consent was then obtained. The patient was placed in supine positioning for imaging and for the procedure. The overlying skin was prepped and draped in usual sterile fashion. Lidocaine buffered with bicarbonate was used as anesthetic into the skin and subcutaneous tissue up to area of concern in the right breast. A mukesh was made with surgical scalpel. Under ultrasound guidance, a [employer] biopsy gun device was used to obtain 5 core samples. Following this, a biopsy clip was left in lesion. The patient tolerated the procedure well without any immediate complication. The patient was kept in the radiology department for short stay after the procedure and then discharged home in stable condition. IMPRESSION: Successful, uncomplicated ultrasound guided core biopsy of area of concern in the right breast. Full pathology results to follow. Pathology Results: Benign RIGHT BREAST, 10 O'CLOCK, ULTRASOUND GUIDED CORE BIOPSY: Fibrocystic changes including sclerosing adenosis, fibrosis and small cysts. Recommendation Follow up ultrasound of the right breast in 6 months. FRANCIED
--- NOTE | 2021-05-01 12:20 | MM ---
Right DIGITAL DIAGNOSTIC MAMMOGRAM WITH CAD 2-D REASON FOR EXAMINATION: Post procedure ultrasound guided biopsy of right breast COMPARISON: Ultrasound biopsy 421, same date TECHNIQUE: Right craniocaudal and mediolateral oblique views were obtained digitally. FINDINGS: C (heterogeneously dense) . There is a postbiopsy clip at 10:00, approximately 6 cm from the nipple, an appropriate position. IMPRESSION: 1. Postbiopsy clip at 10:00, approximately 6 cm from the nipple, an appropriate position. Pathology r esults to follow. Post procedure
== END ==
LOC: RADUSWWP 09:30
PROVIDERS: ATTEND Surgery
DX: N60.11 Diffuse cystic mastopathy of right breast (principal); R92.8 Other abnormal and inconclusive findings on diagnostic imaging of breast; N60.21 Fibroadenosis of right breast; Z91.040 Latex allergy status; Z91.013 Allergy to seafood; Z91.048 Other nonmedicinal substance allergy status
CPT/HCPCS: 88305; 77065; 19083; A4648; J2001

== ENCOUNTER → 2021-05-08 | Outpatient (CLI) | payer BC, OTHER ==
[2021-05-08 11:25] VITALS: BP 107/70; PULSE 54; RESP 16; TEMP 98.4
--- NOTE | 2021-05-08 11:36 | P.PN ---
Subjective Progress Note Date: 05/08/21 Principal diagnosis: Fibrocystic changes right breast on core biopsy Cheryl is a 41-year-old white female who underwent an ultrasound-guided core biopsy of the right breast and 6421. Pathology revealed fibrocystic changes including sclerosing adenosis, fibrosis and small cyst. This was reviewed by radiology and felt to be benign concordant. The patient tolerated the procedure without difficulty. Objective - Vital Signs Vital signs: Vital Signs Temp 98.4 F 05/08/21 11:05 Pulse 54 L 05/08/21 11:05 Resp 16 05/08/21 11:05 BP 107/70 05/08/21 11:05 Pulse Ox 98 05/08/21 11:05 Intake & Output 05/07/21 05/08/21 05/08/21 18:59 06:59 18:59 Weight 66.224 kg - Constitutional General appearance: Present: average body habitus - EENT Eyes: Present: EOMI ENT: Present: hearing grossly normal - Integumentary Integumentary Comment(s): Biopsy site clean and dry, mild ecchymosis, no evidence of hematoma or infection Assessment and Plan Assessment: Impression: Status post core biopsy right breast benign concordant Plan: Repeat right breast mammogram in 6 months with physician exam at that time
== END ==
LOC: WWCWWP 10:52
PROVIDERS: ATTEND Surgery
DX: N60.91 Unspecified benign mammary dysplasia of right breast (principal); Z88.0 Allergy status to penicillin; Z88.1 Allergy status to other antibiotic agents; Z91.040 Latex allergy status; Z91.048 Other nonmedicinal substance allergy status; Z91.041 Radiographic dye allergy status; Z91.013 Allergy to seafood; F17.200 Nicotine dependence, unspecified, uncomplicated

== ENCOUNTER 2021-10-09 05:45 | Day surgery (SDC) | payer BC ==
[2021-10-07 12:46] VITALS: BMI 24.0
--- NOTE | 2021-10-08 12:28 | P.HPOB ---
History of Present Illness H&P Date: 10/08/21 Chief Complaint: Requesting permanent sterilization This patient is a pleasant 41-year-old 2 para 2 female who presented to my office for yearly examination last month and is requesting permanent sterilization. Did discuss options with the patient for control including male sterilization and they have decided to proceed with laparoscopic tubal with cautery for permanent sterilization. Past Medical History Past Medical History: Asthma Additional Past Medical History / Comment(s): Asthma, migranes, VAIN II of the vagina status post cauterization/resection History of Any Multi-Drug Resistant Organisms: None Reported Additional Past Surgical History / Comment(s): Patient had wisdom tooth extraction. vaginal excisional for VAIN II, BIOPSY RIGHT BREAST Past Anesthesia/Blood Transfusion Reactions: No Reported Reaction, Family History of Problems w/ Anesthesia Additional Past Anesthesia/Blood Transfusion Reaction / Comment(s): pt has never had anesthesia - IV ZOFRAN CAUSED -RASH Smoking Status: Current some day smoker Past Alcohol Use History: None Reported Past Drug Use History: None Reported - Past Family History Father Family Medical History: Blood Disorder Additional Family Medical History / Comment(s): Factor V Sister(s) Family Medical History: Blood Disorder, CVA/TIA Additional Family Medical History / Comment(s): Factor V Medications and Allergies Home Medications Medication Instructions Recorded Confirmed Type Pseudoephedrine [Sudafed] 30 mg PO Q4-6H PRN 07/18/18 10/07/21 History Ibuprofen [Motrin] 600 mg PO Q6HR PRN #40 tab 07/27/18 10/07/21 Rx Cetirizine HCl [Zyrtec] 10 mg PO DIRECTED PRN 04/21/21 10/07/21 History Acetaminophen [Tylenol Extra 500 mg PO DAILY PRN 10/07/21 10/07/21 History Strength] Fluticasone Propionate [Flonase 1 spray EA NOSTRIL DAILY PRN 10/07/21 10/07/21 History Allergy Relief] Tretinoin [Tretinoin 0.025%] 1 applic TOPICAL DAILY 10/07/21 10/07/21 History Allergies Allergy/AdvReac Type Severity Reaction Status Date / Time iodine Allergy Anaphylaxis Verified 10/07/21 12:11 Penicillins Allergy Anaphylaxis Verified 10/07/21 12:11 shellfish derived [Shellfish] Allergy Anaphylaxis Verified 10/07/21 12:11 adhesive tape AdvReac Rash/Hives Verified 10/07/21 12:11 latex AdvReac Rash/Hives Verified 10/07/21 12:11 Exam - OBG Physical Exam Abdomen: bowel sounds normal, no diffuse tenderness, no bruit present, no guarding noted, no hepatomegaly, no splenomegaly, no mass Vulva: both: normal Vagina: normal moisture, no discharge Cervix: no lesion, no discharge Uterus: normal size, normal contour Assessment and Plan Assessment: This is a pleasant 41-year-old 2 para 2 female who is requesting permanent sterilization. Plan is laparoscopic bilateral fallopian tube cauterization. Patient does understand the surgery and risks including risks of infection, bleeding, possible injury to bowel, bladder, vessels, and/or other organs. She also understands this is a permanent procedure however there is a failure rate of less than 5 per thousand procedures done. She understands if she does become she is a 50% chance of a tubal or an ectopic . Patient is aware that there are alternatives to the surgery and is considered elective. All the patient's questions are answered and a written consent is obtained. (1) Family planning Status: Acute Code(s): Z30.09 - ENCOUNTER FOR OTH GENERAL CNSL AND ADVICE ON CONTRACEPTION SNOMED Code(s): 044033598
[~2021-10-09 05:45] MED LIST changes: -DEXAMETHASONE SOD PHOSPHATE 10 MG/ML 1 ML VIAL IV ONE; +DEXAMETHASONE SOD PHOSPHATE 4 MG/ML 1 ML VIAL IV ONE; +HYDROmorphone 0.5 MG/0.5 ML SYRINGE IVP PRN; -LIDOCAINE 1% 20 ML VIAL (10MG/ML) FOR IV START INTRADERMA PRN; -MIDAZOLAM 2 MG/2 ML VIAL IV PRN; -fentaNYL (PF) 50 MCG/ML 2 ML AMP IV PRN
[2021-10-09] MEDS ORDERED: LIDOCAINE 1% (10MG/ML) FOR IV START INTRADERMA ONE (06:20)
[2021-10-09] MEDS ORDERED: SCOPOLAMINE 1.5MG/72HR PATCH TRANSDERM ONE (06:30)
[2021-10-09] MEDS ORDERED: LIDOCAINE 1% INJ 10MG/ML (20 ML MDV) ONE (06:49)
[2021-10-09] MEDS ORDERED: MIDAZOLAM 2 MG/2 ML VIAL ONE (06:49)
[2021-10-09] MEDS ORDERED: GLYCOPYRROLATE 0.2 MG/ML 2 ML VIAL ONE (06:49)
[2021-10-09] MEDS ORDERED: PROPOFOL 10 MG/ML 20 ML VIAL IV ONE (06:49)
[2021-10-09] MEDS ORDERED: fentaNYL (PF) 50 MCG/ML 2 ML AMP ONE (06:49)
[2021-10-09] MEDS ORDERED: diphenhydrAMINE 50 MG/ML 1 ML VIAL ONE (06:49)
[2021-10-09] MEDS ORDERED: KETOROLAC 15 MG/ML 1 ML VIAL ONE (06:49)
[2021-10-09] MEDS ORDERED: NEOSTIGMINE 1 MG/ML 10 ML VIAL ONE (06:49)
[2021-10-09] MEDS ORDERED: ROCURONIUM 10 MG/ML (5 ML VIAL) IV ONE (06:49)
[2021-10-09] MEDS ORDERED: BUPIVACAINE (PF) 0.25% 30 ML VIAL SQ ONE ×2 (07:10→07:29)
--- NOTE | 2021-10-09 07:45 | P.OP ---
Date of Procedure: 10/09/21 Preoperative Diagnosis: Multi parity desires permanent sterilization Postoperative Diagnosis: Same Procedure(s) Performed: Laparoscopic bilateral fallopian tube cauterization Anesthesia: YARELIA Surgeon: Fredis Nolen Estimated Blood Loss (ml): 5 Urine output (ml): 20 Pathology: none sent Condition: stable Disposition: PACU Indications for Procedure: Please see dictated H&P for intimate details of this patient's admission. Brief summary this is a pleasant 41-year-old female who has requested permanent sterilization for control. Patient and I discussed various options for control and this is the method she has chosen. She understands it is a permanent procedure however there is a failure rate of approximately less than 5 per thousand procedures done. She also understands that laparoscopic surgery and apparently has risks including risks of infection, bleeding, possible injury bowel, bladder, vessels, and/or other organs. All the patient's questions are answered and a written consent is obtained. Operative Findings: This patient had normal-appearing tubes and ovaries. 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 Description of Procedure: This patient is taken to the operating room where she is laid in the supine position. She subsequently undergoes general endotracheal anesthesia without incident. With adequate level of anesthesia she is placed in the dorsal lithotomy position. She has a vaginal perineal prep and drape. Examination under anesthesia shows a normal size uterus that is mid position. I first good on below and place a speculum into the vagina. The anterior lip of the cervix is grabbed with an Allis clamp. [place] cannula was then attached to this. Bladder is then drained with a latex free catheter and left in place. The speculum is then removed. We then changed gloves and go up above. Make a 10 mm infraumbilical incision through the umbilicus. Through this I use a 10 mm bladed lists optical trocar in place a directly into the peritoneum. With peritoneal placement confirmed pneumoperitoneum was then created to 12 mm of carbon dioxide gas. Patient is placed in some Trendelenburg position. Approximate 2 finger breaths above the symphysis pubis a 5 mm incision is made. Using 5 mm blade-less trocar I placed a directly under direct visualization. Using blunt probe I manipulate the uterus tubes and ovaries all appear normal the uterus does however have an appearance of a bicornuate or septate appearance. With this done the bipolar cautery is then taken and I grabbed the left fallopian tube approximately 4 cm from the cornual insertion a 2 cm segment of tube is completely cauterized using bipolar cautery complete cauterization is noted by the volt meter. Using a similar technique on the right side with sim ilar results. With this completed for inspection of the abdomen and pelvis is done all appears normal. The lower trochars removed and good hemostasis is noted pneumoperitoneum is reduced and the upper trochars removed. Both incisions are closed using a 4-0 Vicryl. Steri-Strips and sterile dressing is applied I did infiltrate both incisions with half percent Marcaine. Then good on below remove the catheter acorn cannula an Allis clamp. All counts are correct 3. Patient is awakened from anesthesia and taken to the recovery room in satisfactory condition
[2021-10-09 07:51] VITALS: TEMP 97.2
[2021-10-09 09:12] VITALS: RESP 20
[2021-10-09] MEDS ORDERED: Acetaminophen-Codeine 300-30mg TAB ONE (09:16)
[2021-10-09 09:19] VITALS: BP 116/78; PULSE 91
[2021-10-09] MEDS ORDERED: Acetaminophen-Codeine 300-30mg TAB PO ONE (09:19)
== END 2021-10-09 10:18 | disposition home or self-care (01) ==
LOC: OR 05:45
PROVIDERS: ATTEND Obstetrics & Gynecology
DX: Z30.2 Encounter for sterilization (principal); J45.909 Unspecified asthma, uncomplicated; G43.909 Migraine, unspecified, not intractable, without status migrainosus; Z98.890 Other specified postprocedural states; F17.200 Nicotine dependence, unspecified, uncomplicated; Z83.2 Family history of diseases of the blood and blood-forming organs and certain disorders involving the immune mechanism; Z82.3 Family history of stroke; Z79.899 Other long term (current) drug therapy; Z91.040 Latex allergy status; Z88.0 Allergy status to penicillin; Z91.013 Allergy to seafood; Z91.048 Other nonmedicinal substance allergy status; Z91.09 Other allergy status, other than to drugs and biological substances; Z97.2 Presence of dental prosthetic device (complete) (partial)
CPT/HCPCS: 81025; 58670; J2250; J1200; J2710; J2001; J3010; J1885; J2704; J1170

== ENCOUNTER → 2022-01-05 | Outpatient (CLI) | payer BC, MEDICAID ==
--- NOTE | 2022-01-05 09:47 | MM ---
Reason for exam: history of benign breast biopsy. Last mammogram was performed 8 months ago. History: Family history of breast cancer in paternal aunt and breast cancer in paternal cousin. Benign US biopsy breast VAD RT of the right breast, May 01, 2021. Physical Findings: Nurse did not find any significant physical abnormalities on exam. MG 3D Diag Mammo W/Cad RT CC and MLO view(s) were taken of the right breast. Prior study comparison: May 01, 2021, right breast MG diagnostic mammo RT wo CAD. No significant new findings when compared with previous films. These results were verbally communicated with the patient and result sheet given to the patient on 01/05/22. ASSESSMENT: Benign, BI-RAD 2 RECOMMENDATION: Routine screening mammogram of both breasts in 3 months. Back on schedule for March 2022.
== END | disposition home or self-care (01) ==
LOC: RADMAMWWP 08:28
PROVIDERS: ATTEND Surgery
DX: R92.8 Other abnormal and inconclusive findings on diagnostic imaging of breast (principal); Z80.3 Family history of malignant neoplasm of breast
CPT/HCPCS: 77061; 77065